=== PATIENT | female | born 1985 | race Caucasian/White ===

== ENCOUNTER 2018-06-19 09:57 | Emergency (ER) | payer BC ==
[~2018-06-19] VITALS: Ht 152.4 cm; Wt 55.0 kg
[~2018-06-19 09:57] MED LIST: AMOXIL500 MG OR; BACTRIM DS1 TAB OR; BACTRIM DS1 TAB PO; CIPRO500 MG OR; DEPO-PROVER150 MG/ML IM; LORTAB 5/3255 MG PO; NO; PODOFILOX0.5 % EX; ROCEPHIN 2250 MG/VIA IM; TYLENOL500 MG OR; ULTRAM50 MG OR
[2018-06-19 10:31] LABS: URINE BILIRUBIN - DIPSTICK NEGATIVE (NEGATIVE); URINE BLOOD DIPSTICK NEGATIVE (NEGATIVE); URINE COLOR YELLOW; URINE GLUCOSE - DIPSTICK NEGATIVE (NEGATIVE); URINE KETONE NEGATIVE (NEGATIVE); URINE LEUK ESTERASE NEGATIVE (NEGATIVE); URINE NITRITE - DIPSTICK NEGATIVE (Negative); URINE PH 6.5 (4.5-8.0); URINE PROTEIN - DIPSTICK NEGATIVE (NEG-TRACE); URINE SPECIFIC GRAVITY 1.015; URINE UROBILINOGEN - DIPSTICK 0.2 E.U./dL (0.2)
[2018-06-19] MEDS ORDERED: CYCLOBENZAPR5 MG PO (11:19)
[2018-06-19 11:25] VITALS: BP 124/82
== END 2018-06-19 11:25 | disposition home or self-care (01) | DRG 552 ==
LOC: ED 09:57
PROVIDERS: Family Medicine
DX: M62.830 Muscle spasm of back (principal); S29.012A Strain of muscle and tendon of back wall of thorax, initial encounter; F17.210 Nicotine dependence, cigarettes, uncomplicated; X58.XXXA Exposure to other specified factors, initial encounter

== ENCOUNTER 2019-01-13 17:57 | Emergency (ER) | payer BC ==
[~2019-01-13] VITALS: Ht 152.4 cm; Wt 54.0 kg
[~2019-01-13 17:57] MED LIST changes: +CYCLOBENZAPR5 MG PO
[2019-01-13] MEDS ORDERED: CLINDAMYCIN300 M1 PO (18:25)
[2019-01-13 18:45] VITALS: BP 103/68
[2019-01-14] MEDS ORDERED: KEFLEX500 MG PO (22:43)
[2019-01-14] MEDS ORDERED: BACTRIM DS1 TAB PO (22:56)
== END 2019-01-13 18:45 | disposition home or self-care (01) | DRG 159 ==
LOC: ED 17:57
DX: K03.81 Cracked tooth (principal); F17.210 Nicotine dependence, cigarettes, uncomplicated

== ENCOUNTER 2019-01-14 20:20 | Emergency (ER) | payer BC ==
[~2019-01-14] VITALS: Ht 152.4 cm; Wt 70.0 kg
[~2019-01-14 20:20] MED LIST changes: +CLINDAMYCIN300 M1 PO
[2019-01-14 22:05] LABS: HEMATOCRIT 38.2 % (37.0-47.0); HEMOGLOBIN 12.5 g/dl (12.0-16.0); IMMATURE GRANULOCYTES 0.4 % (0.0-5.0); MEAN CELL VOLUME 94.3 fL CALC (80.0-100.0); MEAN CORPUSCULAR HGB 30.9 pG CALC (26.0-32.0); MEAN CORPUSCULAR HGB CONC 32.7 g/L CALC (32.0-36.0); NEUT# 7.92 thou/uL (2.00-7.15); RED BLOOD COUNT 4.05 mill/uL (4.20-5.60); RED CELL DISTRI WIDTH 13.5 % (11.5-15.5)
[2019-01-14 22:32] LABS: ALBUMIN 3.8 g/dL (3.2-5.0); ALKALINE PHOSPHATASE 88 u/l (38-126); ANION GAP 10 (6-22 (CALC)); BUN 13 mg/dL (7-17); BUN/CREATININE RATIO 25 (12-20 (CALC)); CARBON DIOXIDE 27 mmol/l (22-30); CHLORIDE 107 mmol/l (95-108); CREATININE 0.5 mg/dL (0.5-1.0); GFR > 60 ML/MIN (>=60 (CALC)); GFR FOR AFR.AMER. > 60 ML/MIN (>=60 (CALC)); POTASSIUM 4.5 mmol/l (3.5-5.1); SGOT/AST 19 u/l (14-36); SODIUM 140 mmol/l (137-146)
[2019-01-14 22:36] LABS: BILIRUBIN, TOTAL 0.3 mg/dL (0.0-1.4)
[2019-01-14] MEDS ORDERED: KEFLEX500 MG PO (22:43)
[2019-01-14 22:45] VITALS: BP 128/77
[2019-01-14] MEDS ORDERED: BACTRIM DS1 TAB PO (22:56)
== END 2019-01-14 23:06 | disposition home or self-care (01) | DRG 158 ==
LOC: ED 20:20
DX: K04.7 Periapical abscess without sinus (principal); L03.211 Cellulitis of face; F17.210 Nicotine dependence, cigarettes, uncomplicated

== ENCOUNTER 2021-10-26 10:09 | Emergency (ER) | payer BC ==
[~2021-10-26] VITALS: Ht 152.4 cm; Wt 55.9 kg
[~2021-10-26 10:09] MED LIST changes: +KEFLEX500 MG PO
[2021-10-26 10:24] VITALS: BP 119/79
[2021-10-26 10:49] LABS: HEMATOCRIT 41.4 % (37.0-47.0); HEMOGLOBIN 13.2 g/dl (12.0-16.0); IMMATURE GRANULOCYTES 0.3 % (0.0-5.0); MEAN CELL VOLUME 97.4 fL CALC (80.0-100.0); MEAN CORPUSCULAR HGB 31.1 pG CALC (26.0-32.0); MEAN CORPUSCULAR HGB CONC 31.9 g/dL CAL (32.0-36.0); NEUT# 9.74 thou/uL (2.00-7.15); RED BLOOD COUNT 4.25 mill/uL (4.20-5.60); RED CELL DISTRI WIDTH 13.5 % (11.5-15.5)
[2021-10-26 10:51] LABS: URINE BILIRUBIN - DIPSTICK NEGATIVE (NEGATIVE); URINE BLOOD DIPSTICK MODERATE (NEGATIVE); URINE COLOR YELLOW; URINE GLUCOSE - DIPSTICK NEGATIVE (NEGATIVE); URINE KETONE NEGATIVE (NEGATIVE); URINE LEUK ESTERASE NEGATIVE (NEGATIVE); URINE PROTEIN - DIPSTICK 30 mg/dL (NEG-TRACE); URINE SPECIFIC GRAVITY 1.025
[2021-10-26 10:53] LABS: URINE NITRITE - DIPSTICK POSITIVE (Negative)
[2021-10-26 11:06] LABS: URINE BACTERIA MANY hpf; URINE SQUAMOUS EPITHELIAL CELL MANY EPI/hpf (0-FEW)
[2021-10-26 11:09] LABS: ALBUMIN 4.1 g/dL (3.2-5.0); ALKALINE PHOSPHATASE 97 u/l (38-126); ANION GAP 14 (6-22 (CALC)); BILIRUBIN, TOTAL 0.7 mg/dL (0.0-1.4); BUN 14 mg/dL (7-17); BUN/CREATININE RATIO 28 (12-20 (CALC)); CARBON DIOXIDE 23 mmol/l (22-30); CHLORIDE 106 mmol/l (95-108); CREATININE 0.5 mg/dL (0.5-1.0); GFR FOR AFR.AMER. > 60 ML/MIN (>=60 (CALC)); GFR OTHER RACES > 60 ML/MIN (>=60 (CALC)); POTASSIUM 3.5 mmol/l (3.5-5.1); SGOT/AST 17 u/l (14-36); SODIUM 139 mmol/l (137-146); TOTAL PROTEIN 7.6 g/dL (6.3-8.2)
[2021-10-26] MEDS ORDERED: LEVAQUIN750 M1 PO (13:55)
[2021-10-26] MEDS ORDERED: ZOFRAN4 MG/TAB PO (13:58)
[2021-10-26 14:00] VITALS: BP 119/79
== END 2021-10-26 14:15 | disposition home or self-care (01) | DRG 690 ==
LOC: ED 10:09
PROVIDERS: Family Medicine
DX: N39.0 Urinary tract infection, site not specified (principal); F17.200 Nicotine dependence, unspecified, uncomplicated

== ENCOUNTER 2024-05-01 12:56 | Emergency (ER) | payer BC ==
[~2024-05-01] VITALS: Ht 152.4 cm; Wt 59.0 kg
[2024-05-01] VITALS (15 sets, daily range): BP systolic 89–111; BP diastolic 57–71
[~2024-05-01 12:56] MED LIST changes: +LEVAQUIN750 M1 PO; +MACROBID100 M1 PO; +MEDDOSEPAK PO; +METHOCARBAMOL500 MG PO; +NAPROXEN500 MG PO; +VOLTAREN - GENE75 MG PO; +ZOFRAN4 MG/TAB PO
[2024-05-01] MEDS ORDERED: ASPIRIN 81 MG/TAB PO ONE (13:15)
[2024-05-01] MEDS ORDERED: NITROGLYCERIN 0.4 MG/TAB SL ONE (13:35)
[2024-05-01] MEDS ORDERED: SODIUM CHLORIDE 0.9% 1,000 ML IV ONE (13:40)
[2024-05-01 14:00] LABS: URINE BLOOD DIPSTICK Trace-intact (NEGATIVE); URINE GLUCOSE - DIPSTICK Negative (NEGATIVE); URINE KETONE Trace mg/dL (NEGATIVE); URINE LEUK ESTERASE Negative (NEGATIVE); URINE PROTEIN - DIPSTICK 30 mg/dL (NEG-TRACE); URINE SPECIFIC GRAVITY 1.025; URINE UROBILINOGEN - DIPSTICK 0.2 E.U./dL (0.2)
[2024-05-01 14:00] LABS: BASO% 0.1 % (0-3); EOS% 0.5 % (0-8); HEMATOCRIT 43.1 % (37.0-47.0); HEMOGLOBIN 13.7 g/dl (12.0-16.0); IMMATURE GRANULOCYTES 0.1 % (0.0-5.0); MEAN CELL VOLUME 97.3 fL CALC (80.0-100.0); MEAN CORPUSCULAR HGB 30.9 pG CALC (26.0-32.0); MEAN CORPUSCULAR HGB CONC 31.8 g/dL CAL (32.0-36.0); MONO% 2.5 % (2-13); NEUT# 10.86 thou/uL (2.00-7.15); NEUT% 89.8 % (42-76); RED BLOOD COUNT 4.43 mill/uL (4.20-5.60); RED CELL DISTRI WIDTH 13.1 % (11.5-15.5)
[2024-05-01 14:24] LABS: URINE COLOR Dark yellow; URINE NITRITE - DIPSTICK Positive (Negative)
[2024-05-01 14:26] LABS: ALBUMIN 4.2 g/dL (3.2-5.0); ALKALINE PHOSPHATASE 101 u/l (38-126); AMYLASE 63 u/l (30-110); ANION GAP 12 (6-22 (CALC)); BILIRUBIN, TOTAL 0.9 mg/dL (0.02-1.3); BUN 22 mg/dL (7-17); BUN/CREATININE RATIO 42 (12-20 (CALC)); CARBON DIOXIDE 21 mmol/l (22-30); CHLORIDE 110 mmol/l (95-108); CREATININE 0.5 mg/dL (0.5-1.0); ESTIMATED GFR 122 ML/MIN (>=90 (CALC)); LIPASE 56 u/l (23-300); POTASSIUM 4.1 mmol/l (3.5-5.1); SGOT/AST 37 u/l (14-36); SODIUM 139 mmol/l (137-146); TOTAL PROTEIN 7.5 g/dL (6.3-8.2)
[2024-05-01 14:45] LABS: URINE BACTERIA MANY hpf; URINE MUCUS FEW hpf (NONE-FEW); URINE RBC 0-2 RBC/hpf (0-5); URINE SQUAMOUS EPITHELIAL CELL MODERATE EPI/hpf (0-FEW)
[2024-05-01] MEDS ORDERED: KETOROLAC TROMETHAMINE 30 MG/ML SDV IV ONE (15:20)
== END 2024-05-01 16:40 | disposition home or self-care (01) | DRG 313 ==
LOC: ED 12:56
PROVIDERS: Nurse Practitioner
DX: R07.89 Other chest pain (principal); N39.0 Urinary tract infection, site not specified; B96.20 Unspecified Escherichia coli [E. coli] as the cause of diseases classified elsewhere; F17.210 Nicotine dependence, cigarettes, uncomplicated; Z82.49 Family history of ischemic heart disease and other diseases of the circulatory system